=== PATIENT | male | born 1995 | race Caucasian/White ===

== ENCOUNTER → 2016-12-05 | Outpatient (CLI) | payer OTHER ==
--- NOTE | 2016-12-05 10:53 | XR ---
EXAMINATION TYPE: XR spine complete AP and Lat DATE OF EXAM: 12/05/2016 10:32 AM COMPARISON: NONE HISTORY: Pain TECHNIQUE: Three views of the cervical spine are submitted. FINDINGS: The cervical spine is visualized in its entirety from C1 thru the top of T1 level. It is s atisfactory in alignment without evidence of acute fracture or dislocation. The pre-vertebral soft t issue appears within normal limits. The C1-C2 articulation is unremarkable on the open mouth view. Disc spaces are well preserved. IMPRESSION: No acute fracture or dislocation is seen in the cervical spine. Disc spaces are well pre served. THORACIC SPINE 2 VIEWS. TECHNIQUE: Frontal, lateral, and swimmer's view of thoracic spine are obtained. COMPARISON: None. FINDINGS: Thoracic spine show satisfactory alignment without evidence of acute fracture or dislocatio n. Vertebral body heights are preserved. Disc spaces are well preserved. Visualized ribs are unre markable. IMPRESSION: No acute fracture or dislocation is seen in the thoracic spine. Disc spaces are well pres erved. LUMBAR SPINE X-RAY: TECHNIQUE: Three views of the lumbar spine are submitted. COMPARISON: None. FINDINGS: There are 5 lumbar type vertebral bodies identified. The lumbar spine shows satisfactory alignment without evidence of acute fracture or dislocation. Vertebral body heights are within normal limits. Disc spaces are well preserved. The overlying soft tissue appears unremarkable. IMPRESSION: No acute fracture or dislocation is seen in the lumbar spine. Disc spaces are well pres erved. ICD 10 NO FRACTURE, INITIAL EVALUATION
== END | disposition home or self-care (01) ==
LOC: RADXRMAIN 10:13
PROVIDERS: ATTEND Internal Medicine
DX: G89.29 Other chronic pain (principal); M54.2 Cervicalgia; M54.6 Pain in thoracic spine; M54.5 Low back pain
CPT/HCPCS: 72082